=== PATIENT | female | born 1995 | race Caucasian/White ===

== ENCOUNTER 2021-07-18 03:28 | Inpatient (IN) | payer BC ==
[~2021-07-18] VITALS: Ht 147.3 cm; Wt 106.4 kg
[2021-07-18] MEDS ORDERED: ONDANSETRON HCL 4MG/2ML INJ IV STA (03:42)
[2021-07-18] MEDS ORDERED: KETOROLAC 30MG/ML VIAL IV STA (03:42)
[2021-07-18] MEDS ORDERED: SODIUM CHLORIDE 0.9% 1,000 ML IV ONE (03:45)
[2021-07-18 04:38] LABS: CLARITY URINE CLOUDY (CLEAR); COLOR URINE YELLOW (YELLOW); KETONES URINE TRACE (NEGATIVE); LEUKOCYTE ESTERASE URINE 1+ (NEGATIVE); NITRITE URINE NEGATIVE (NEGATIVE); OCCULT BLOOD URINE NEGATIVE (NEGATIVE); PH URINE 6.5 (4.5-8.0); PROTEIN URINE NEGATIVE (NEGATIVE)
[2021-07-18 04:55] LABS: BASOPHILS % 0.6 % (0.0-2.0); EOSINOPHILS % 0.4 % (0.0-5.0); HEMATOCRIT. 39.8 % (36.0-48.0); HEMOGLOBIN. 12.9 g/dL (12.0-16.0); LYMPHOCYTES % 13.6 % (20.0-50.0); MEAN CORPUSCULAR HEMOGLOBIN 27.1 pg (28.0-32.0); MEAN CORPUSCULAR VOLUME 83.5 fL (81.0-99.0); MEAN PLATELET VOLUME 9.6 fl (7.4-10.4); MONOCYTES % 6.6 % (2.0-8.0); NEUTROPHILS % 78.8 % (40.0-76.0); PLATELET 293 x1000/uL (130-400); RED BLOOD CELL COUNT 4.77 mill/uL (4.2-5.4); RED CELL DISTRIBUTION WIDTH 13.5 % (11.6-14.6)
[2021-07-18 05:02] LABS: CHLORIDE 108 mEq/L (98-107)
[2021-07-18] MEDS ORDERED: CEFTRIAXONE 1 G PREMIX 50 ML IV ONE (06:45)
[2021-07-18] MEDS ORDERED: DIPHENHYDRAMINE 50MG/ML VIAL IV PRN (16:15)
[2021-07-18] MEDS ORDERED: ZOLPIDEM TARTRATE 5MG TABLET PO PRN (16:15)
[2021-07-18] MEDS ORDERED: CEFTRIAXONE 1 G PREMIX 50 ML IV SCH (16:15)
[2021-07-18] MEDS ORDERED: MAGNESIUM/ALUMINUM HYDROXIDE/SIMETHICONE 30ML UDC PO PRN (16:15)
[2021-07-18] MEDS ORDERED: ACETAMINOPHEN 325MG TABLET PO PRN ×2 (16:15)
[2021-07-18] MEDS ORDERED: KETOROLAC 30MG/ML VIAL IV PRN (16:15)
[2021-07-18] MEDS ORDERED: ONDANSETRON HCL 4MG/2ML INJ IV PRN (16:15)
[2021-07-18] MEDS: SODIUM CHLORIDE 0.9% 1,000 ML IV SCH ×2 (16:29→21:57)
[2021-07-18] MEDS ORDERED: TAMSULOSIN HCL 0.4MG SR CAPSULE PO NR (18:45)
[2021-07-18 19:48] VITALS: BP 136/69
[2021-07-18 20:00] VITALS: BP 123/58
[2021-07-18] MEDS ORDERED: INFLUENZA VACCINE 05/PF 0.5 ML SYRINGE IM ONE (20:00)
[2021-07-19] VITALS: BP 109/62
[2021-07-19 04:00] VITALS: BP 99/44
[2021-07-19] MEDS: SODIUM CHLORIDE 0.9% 1,000 ML IV SCH (05:41)
[2021-07-19] MEDS ORDERED: CEFTRIAXONE 1,000 MG in DEXTROSE 5% WATER 50 ML IV SCH (07:00)
[2021-07-19 08:00] VITALS: BP 105/70
[2021-07-19] MEDS ORDERED: TAMSULOSIN HCL 0.4MG SR CAPSULE PO SCH (09:00)
[2021-07-19 12:00] VITALS: BP 121/51
[2021-07-19 15:02] VITALS: BP 121/51
== END 2021-07-19 15:30 | disposition home or self-care (01) | DRG 694 ==
LOC: ER 03:28 → 6EST 09:32 → ENRESERV 17:10
PROVIDERS: ADMIT Internal Medicine; ATTEND Internal Medicine
DX: N13.2 Hydronephrosis with renal and ureteral calculous obstruction (principal); R65.10 Systemic inflammatory response syndrome (SIRS) of non-infectious origin without acute organ dysfunction; Z20.822 Contact with and (suspected) exposure to COVID-19; N39.0 Urinary tract infection, site not specified
CPT/HCPCS: 36415; 74176; 76770; 80053; 81003; 85025; 87426; 90686; 99285; C1893; J0696; J1885; J2405; J7030; J7060

== ENCOUNTER 2021-10-09 09:17 | Emergency (ER) | payer BC ==
[~2021-10-09] VITALS: Ht 149.9 cm; Wt 106.0 kg
[2021-10-09] MEDS ORDERED: KETOROLAC 30MG/ML VIAL IV STA (09:32)
[2021-10-09] MEDS ORDERED: ONDANSETRON HCL 4MG/2ML INJ IV STA (09:32)
[2021-10-09] MEDS ORDERED: SODIUM CHLORIDE 0.9% 1,000 ML IV ONE (09:45)
[2021-10-09 10:28] LABS: BASOPHILS % 0.8 % (0.0-2.0); EOSINOPHILS % 0.8 % (0.0-5.0); HEMATOCRIT. 42.7 % (36.0-48.0); LYMPHOCYTES % 12.9 % (20.0-50.0); MEAN CORPUSCULAR HEMOGLOBIN 27.1 pg (28.0-32.0); MEAN PLATELET VOLUME 9.3 fl (7.4-10.4); MONOCYTES % 5.5 % (2.0-8.0); PLATELET 293 x1000/uL (130-400); RED BLOOD CELL COUNT 5.15 mill/uL (4.2-5.4); RED CELL DISTRIBUTION WIDTH 13.6 % (11.6-14.6)
[2021-10-09 10:33] LABS: CLARITY URINE CLOUDY (CLEAR); COLOR URINE ORANGE (YELLOW); KETONES URINE NEGATIVE (NEGATIVE); LEUKOCYTE ESTERASE URINE NEGATIVE (NEGATIVE); NITRITE URINE NEGATIVE (NEGATIVE); OCCULT BLOOD URINE 3+ (NEGATIVE); PROTEIN URINE NEGATIVE (NEGATIVE); SPECIFIC GRAVITY URINE 1.018 (1.005-1.030); UROBILINOGEN URINE 0.2 E.U./dL (0.2-1.0)
[2021-10-09 10:33] LABS: CHLORIDE 106 mEq/L (98-107)
[2021-10-09 10:40] LABS: HCG SCREEN NEGATIVE
[2021-10-09 11:44] VITALS: BP 143/92
[2021-10-09] MEDS ORDERED: TRAM50TA3 MT (12:41)
[2021-10-09] MEDS ORDERED: IBUP-2030 MT (12:41)
[2021-10-09] MEDS ORDERED: TAMS-11 MT (12:41)
[2021-10-09] MEDS ORDERED: ONDA4TAB11 PO (12:41)
== END 2021-10-09 13:30 | disposition home or self-care (01) ==
LOC: ER 09:17
DX: N20.0 Calculus of kidney (principal); D27.1 Benign neoplasm of left ovary
CPT/HCPCS: 36415; 74176; 80053; 81003; 81025; 83690; 84703; 85025; 96361; 96374; 96375; 99284; J1885; J2405; J7030